=== PATIENT | female | born 2000 | race Caucasian/White ===

== ENCOUNTER 2025-05-24 18:41 | Emergency (ER) | payer OTHER, SELFPAY ==
[2025-05-24 18:53] VITALS: BP 109/91; PULSE 74; RESP 18; TEMP 36.4; O2SAT 100
[2025-05-24 19:21] LABS: EDSTREPNEGPOS1 Negative (Negative)
--- NOTE | 2025-05-24 19:28 | ED_ITS ---
HPI - URI/Sore Throat General Chief Complaint: Upper Respiratory Infection Stated Complaint: Strep Symptoms Time Seen by Provider: 05/24/25 19:20 Source: patient and RN notes reviewed Mode of arrival: ambulatory Limitations: no limitations History of Present Illness HPI Narrative: 24-year-old female presents to the [facility] complaining of sore throat for last 2 days. Patient denies any other upper respiratory symptoms, fevers, body aches, chills, nausea vomiting, diarrhea, cough, abdominal pain, or any other symptoms. Patient denies any significant past medical history. Related Data Home Medications ?Medication ?Instructions ?Recorded ?Confirmed ?Last Taken ?Type levonorgestrel (Mirena) 1 device intrauterine ONCE 0 10/06/23 10/06/23 Unknown History Allergies Allergy/AdvReac Type Severity Reaction Status Date / Time No Known Allergies Allergy Unverified 12/21/23 09:57 Review of Systems Review of Systems: CONSTITUTIONAL: Denies fever, chills, or sweats. EYES: Denies visual changes, redness, or discharge. ENT: Denies rhinorrhea, congestion, difficulty clearing secretions, dysphagia, or otalgia. Positive for sore throat. CARDIOVASCULAR: Denies chest pain, palpitations, or edema. RESPIRATORY: Denies cough or dyspnea. GASTROINTESTINAL: Denies abdominal pain, nausea, vomiting, or diarrhea. GENITOURINARY: Denies dysuria or hematuria. SKIN: Denies rash or itching. MUSCULOSKELETAL: Denies back pain, joint pain, or myalgia. NEUROLOGIC: Denies headache, numbness, or weakness. PSYCHIATRIC: Denies anxiety or depression. All other systems reviewed are negative, except as documented in HPI. [facility] Family History Family History Grandparent Heart disease Mother Disorder of thyroid Grandparent Heart disease Social History Social History Smoking status: Never smoker Alcohol intake: current Alcohol use details: socially Substance use: never Substance use type: does not use Do You Feel Safe in your Home?: Yes Lack of Transportation: No Lack of Food: Never True Current Housing: I Have Housing Concerned About Future Housing: No Difficulty Paying Gas/Electric Bills: No Difficulty Paying for Meds: No Currently Unemployed: No Education: Bachelor's Degree Difficulty w/ Childcare or Family Care: No Living arrangements: with roommate(s) Occupation/Education: student Additional occupation/education comments: student Gender identity (if verbalized by the patient): Female Sexual Orientation (if Verbalized by the Patient): Straight or Heterosexual Comments At the time of my signature, I reviewed and agree with the nursing past medical, surgical, social, and family history. There is no relevant family history pertinent to the patient complaint. Exam Narrative: GENERAL: This is a well-nourished, well-developed adult, in no apparent distress. They are non ill-appearing, nontoxic appearing. HEAD: normocephalic, atraumatic. EYES: Sclera clear/white. Conjunctiva normal. Vision is grossly intact. Extraocular movements intact EARS: External ears normal, auditory canals clear and without drainage, TMs normal without perforation. Hearing grossly intact. NOSE: External nose normal with no obvious nasal discharge, nasal turbinates without redness, no rhinorrhea. THROAT: Mucous membranes moist, posterior pharynx erythematous. Tonsils 2+ erythematous with exudate. Uvula midline. NECK: Neck supple, mild cervical lymphadenopathy, no masses or thyromegaly. CARDIOVASCULAR: Regular rate and rhythm without murmurs, gallops, or rubs. RESPIRATORY: Clear to auscultation. Breath sounds equal bilaterally. No wheezes, rales, or rhonchi. SKIN: warm, Dry, intact with no suspicious lesions or rash, good texture and turgor. NEURO: awake, alert, and oriented to person, place and time. There were no obvious focal neurologic abnormalities. EXTREMITIES: No joint tenderness, effusion, or edema noted. BACK: Nontender without deformity. No CVA tenderness. Course Course Emergency Course: Portions of this record may have been created with voice recognition software Level of Care: Express Care Visit Vital Signs Vital signs: Vital Signs Temperature 97.5 F L 05/24/25 18:53 Pulse Rate 74 05/24/25 18:53 Respiratory Rate 18 05/24/25 18:53 Blood Pressure 109/91 H 05/24/25 18:53 Pulse Oximetry 100 05/24/25 18:53 Oxygen Delivery Room Air 05/24/25 18:53 Temperature 97.5 F L 05/24/25 18:53 Pulse Rate 74 05/24/25 18:53 Respiratory Rate 18 05/24/25 18:53 Blood Pressure 109/91 H 05/24/25 18:53 Pulse Oximetry 100 05/24/25 18:53 Oxygen Delivery Room Air 05/24/25 18:53 Reviewed MDM - URI/Sore Throat MDM Narrative Medical decision making narrative: Rapid strep negative. A throat culture is pending. Rapid mono negative. Will give patient 1 time dose of dexamethasone. Symptoms likely viral. Discussed physical exam findings. Advised supportive measures and signs/symptoms to go to the ER. Pt is appropriate for outpt treatment and f/u. Differential Diagnosis Differential diagnosis: Likely upper respiratory infection, sinusitis, viral infection and pharyngitis Lab Data Attestation: I reviewed the patient's lab results. Labs: Lab Results 05/24/25 Range/Units 19:18 POC Grp A Strep Screen Negative (Negative) Critical Care Time Critical Care Time Critical Care Time: No Discharge Plan Discharge Clinical Impression: Pharyngitis Qualifiers: Pharyngitis/tonsillitis etiology: unspecified etiology Qualified Code(s): J02.9 - Acute pharyngitis, unspecified Patient Disposition: Home Condition: Stable Instructions: Pharyngitis (ED) Additional Instructions: Your rapid strep swab and mono was negative today at [facility]. You will be notified in a few days if the culture comes back positive for strep, and appropriate antibiotics will be called in for you at that time. Your symptoms are likely due to a viral illness, which is not treated with antibiotics. Viral symptoms can be present for up to 10-14 days. Take Tylenol or Motrin as needed for fever or pain. Follow instructions on the bottle. Rest and stay hydrated. Take dexamethasone as directed. Follow up with your PCP in 5-7 days if symptoms are not improving. Go to the ER immediately if you developed difficulty breathing or swallowing Patient Language: [place] Prescriptions: New dexamethasone 2 mg tablet 10 mg PO DAILY 1 Days Qty: 5 0RF No Action Mirena 21 mcg/24 hours (8 yrs) 52 mg intrauterine device 1 device intrauterine ONCE Rx Instructions: as a single dose Follow-up/Referrals: Aislinn Moore APRN [Primary Care Provider, [facility]] Time of Disposition: 19:30
[2025-05-24 19:47] LABS: EDMONONEGPOS Negative (Negative)
== END 2025-05-24 19:46 | disposition home or self-care (01) ==
PROVIDERS: PCP Nurse Practitioner Adult Health
DX: J02.9 Acute pharyngitis, unspecified (principal)
CPT/HCPCS: 36416; 86308; 87081; 87880; 99213; G0463